=== PATIENT | male | born 2000 | race Two or more races ===

== ENCOUNTER 2021-04-02 11:20 | Emergency (ER) | payer MEDICAID ==
[2021-04-02] MEDS ORDERED: Ondansetron 4 MG/2 ML SDV IVPUSH ONE (11:46)
[2021-04-02] MEDS ORDERED: Ketorolac 30 MG/ML SDV IVPUSH ONE (11:46)
[2021-04-02] MEDS ORDERED: Sodium Chloride 0.9% 1,000 ML IV ONE (11:46)
[2021-04-02] MEDS ORDERED: Morphine 2 MG/ML SYRINGE IVPUSH ONE (11:48)
--- NOTE | 2021-04-02 11:51 | PCM.EKG ---
#1 Interpretation EKG Date: 04/02/21 Time: 11:45 Rhythm: NSR Rate (Beats/Min): 46 [place]: Normal P-Wave: Present QRS: Normal ST-T: Normal QT: Normal Comparison: NA - No Prior EKG EKG Interpretation Comments: Sinus Rhythm with U Waves
[2021-04-02 12:24] LABS: BLOOD UREA NITROGEN,BUN 12 mg/dL (7.0-18.0); CARBON DIOXIDE,CO2 24.8 mmol/L (21.0-32.0); CHLORIDE,CL 105 mmol/L (98-107); GLUCOSE RANDOM 118 mg/dL (74-106); LIPASE 69 U/L (73-393); POTASSIUM,K 3.4 mmol/L (3.5-5.1); SODIUM,NA 141 mmol/L (136-148)
[2021-04-02] MEDS ORDERED: Potassium Chloride 10% 20 MEQ/15 ML Soln 30 ML UD Cup PO ONE (12:32)
[2021-04-02] MEDS ORDERED: Iopamidol 755 MG/ML 500 ML Multipack Bottle IVPUSH STA (13:22)
[2021-04-02] MEDS ORDERED: Calcium Gluconate 10% 1 GM/10 ML SDV IVPUSH ONE (13:32)
--- NOTE | 2021-04-02 13:40 | CT ---
INDICATION: Right lower quadrant pain, stone versus appendicitis. TECHNIQUE: CT of the abdomen and pelvis without and with 100 cc Isovue 370 IV contrast. Coronal and sagittal reconstructions. COMPARISON: None. FINDINGS: There is diffusely heterogeneous enhancement of the liver, greatest in the lateral segment of the left hepatic lobe. The right and middle hepatic veins appear patent, however there is hypoenhancement within the left hepatic vein suggesting thrombus (series 301, image 19). There is also periportal edema within the liver, adam hepatis, and edema surrounding the gallbladder. The edema is favored to represent a reactive liver process rather than gallbladder inflammation. No radiopaque gallstones are seen. No definite biliary dilation. Portal veins are patent. The spleen, pancreas, and adrenal glands are negative. There is a 4 mm obstructing stone at the right ureterovesicular junction (series 301, image 133). Mild upstream right hydroureteronephrosis. No significant delayed nephrogram. Normal enhancement of the left kidney. No left hydronephrosis or ureteral dilation. Diffuse bladder wall thickening. The prostate gland is unremarkable. No bowel dilation. Negative appendix. Small amount of free fluid throughout the abdomen and pelvis. No intraperitoneal free air. No lymphadenopathy. The bones are unremarkable. The lung bases are clear. IMPRESSION: 1. 4 mm obstructing stone at the right UVJ with mild upstream right hydroureteronephrosis. 2. Findings suspicious for left hepatic vein thrombus, with heterogeneous enhancement of left hepatic lobe and periportal/adam hepatis edema. Recommend further evaluation with Doppler ultrasound liver to evaluate the hepatic vasculature. 3. Edema surrounding the gallbladder is favored to be related to the underlying hepatic process, however gallbladder inflammation cannot entirely be excluded. There are no radiopaque gallstones identified. This could also be evaluated with right upper quadrant ultrasound. 4. Findings discussed with Raysa Nguyen at 1:35 p.m. on 04/02/2020. Please note that all CT scans at this facility use dose modulation, iterative reconstruction, and/or weight-based dosing when appropriate to reduce radiation dose to as low as reasonably achievable. Dictated by Priscila Douglas MD @ 04/02/2021 1:38:[address] Priscila Douglas @ Apr 02 2021 1:38PM
--- NOTE | 2021-04-02 14:31 | EDM.PDOC ---
ED HPI GENERAL MEDICAL PROBLEM - General Chief Complaint: Abdominal Pain Stated Complaint: SHARP RT SIDE PAIN Time Seen by Provider: 04/02/21 11:31 Source of Information: Reports: Patient History Limitations: Reports: No Limitations - History of Present Illness INITIAL COMMENTS - FREE TEXT/NARRATIVE: HISTORY AND PHYSICAL: History of present illness: Patient is a 20-year-old male who presents to the ED today with concern of right lower quadrant pain that started this morning. Patient states over the past several days he has noticed that he has had watery nonbloody diarrhea but states that this happens just in the morning and not all day long. Patient states that starting today he has had more significant right lower quadrant pain and states he has never had this happen before. Patient states that he also has some urinary frequency but denies any pain with urination. Patient denies any abdominal surgeries or any health history. Patient denies any other associated symptoms. Patient denies fever, chills, chest pain, shortness of breath, or cough. Denies headache, neck stiff ness, change in vision, syncope, or near syncope. Denies nausea, vomiting, or dysuria. Has not noted any blood in urine or stool. Patient has been eating and drinking appropriately. Review of systems: As per history of present illness and below otherwise all systems reviewed and negative. Past medical history: As per history of present illness and as reviewed below otherwise noncontributory. Surgical history: As per history of present illness and as reviewed below otherwise no ncontributory. Social history: See social history for further information Family history: As per history of present illness and as reviewed below otherwise noncontributory. Physical exam: General: Patient is alert, oriented, and in no acute distress. Patient laying on exam table; holding right lower abdomen and uncomfortable appearing. Bradycardic with heart rate of 45 on initial exam, otherwise vital stable and reviewed by me. HEENT: Atraumatic, normocephalic, pupils equal and reactive bilaterally, negative for conjunctival pallor or scleral icterus, mucous membranes moist, TMs normal bilaterally, throat clear, neck supple, nontender, trachea midline. No drooling or trismus noted. No meningeal signs. No hot potato voice noted. Lungs: Clear to auscultation, breath sounds equal bilaterally, chest nontender. Heart: S1S2, regular rate and rhythm without overt murmur Abdomen: Soft, nondistended, moderate RLQ tenderness without guarding. Negative for masses or hepatosplenomegaly. Negative for costovertebral tenderness. Pelvis: Stable nontender. Genitourinary: Deferred. Rectal: Deferred. Skin: Intact, warm, dry. No lesions or rashes noted. Extremities: Atraumatic, negative for cords or calf pain. Neurovascular unremarkable. Neuro: Awake, alert, oriented. Cranial nerves II through XII unremarkable. Cerebellum unremarkable. Motor and sensory unremarkable throughout. Exam nonfoca l. Notes: Patient is a 20-year-old otherwise healthy male, who presents to the ED today secondary to right lower quadrant abdominal pain that started this morning and diarrhea over the past several days. Upon arrival to the ED, patient is found to be bradycardic with a heart rate of 45 but is asymptomatic with a blood pressure of 140s over 90s. Patient does have right lower quadrant tenderness on exam and does appear to be uncomfortable. Will perform lab work as well as obtain abdominal pelvic CT with concern of possible appendicitis versus ureterolithiasis. Will initiate a fluid bolus and therapeutics to help with discomfort. CBC is unremarkable. CMP shows mild hypokalemia at 3.4, corrected calcium low at 7.8 mg/dL, mildly elevated glucose at 118. Otherwise CMP unremarkable. Lipase is within normal limits. Urinalysis is positive for protein with 10-15 red blood cells. Abdominal pelvic CT scan shows a 4 mm obstructing stone of the right UVJ with mild upstream right hydroureteronephrosis. Findings suspicious for left hepatic vein thrombosis with heterogeneous enhancement of the left hepatic lobe M. Portal/portal hepatitis edema. Recommend further evaluation with Doppler ultrasound of liver to evaluate the hepatic vasculature. Edema surrounding the gallbladder is favored to be related to the underlying hepatic process, however gallbladder inflammation cannot entirely be excluded. There is no radiopaque gallstones identified. Upon reevaluation of patient, he has complete resolution of his pain and feels that the kidney stone has passed. He states that he feels "completely normal "at this time. Will add on at this time RUQ US with doppler flow due to CT finding. There is a delay in radiology interpretation of US due to requiring specialist to interpret the images; noticed via CRTIS. Patient made aware of delays. Right upper quadrant ultrasound with Doppler flow shows question of the left hepatic vein thrombosis on recent CT, the left hepatic vein is patent. Remainder of hepatic vasculature is unremarkable. Periportal edema noted on CT earlier the same day is not as well appreciated on ultrasound. There is a nonspecific finding that can be due to acute hepatitis, cholangitis, congestive heart failure, and aggressive fluid rehydration. Find no evidence also can be seen with acute pyelonephritis or related to kidney stone and hydronephrosis fr om earlier today. Mild gallbladder wall thickening without stones or Zhu sign. Gallbladder wall thickening likely related to periportal edema. Given that patient's LFTs today are within normal limits, patient is now completely asymptomatic of any abdominal pain, RUQ US findings likely related to ureterolithiasis. However, strict return precautions thoroughly discussed with patient. Signs and symptoms that were prompt return to the ED such as but not limited to jaundice, right upper quadrant abdominal pain, extremity swelling, or feeling short of breath. Discussed importance for close follow-up with his primary care provider. Patient was placed on the expedited follow-up list with primary care provider. Although, patient is completely asymptomatic and believed to have passed his kidney stone, discussed following up with the urologist. Voices understanding and is agreeable to plan of care. Denies any further questions or concerns at this time. Diagnostics: EKG, CBC, CMP, UA, lipase, abdominal pelvic CT scan with and without contrast, RUQ US w doppler of liver Therapeutics: NS, Toradol, Morphine Prescription: None Impression: Ureterolithiasis, right Liver edema, nonspecific Plan: 1. You can alternate ibuprofen and Tylenol as directed for pain and discomfort. 2. Follow-up with your primary care provider / urologist as discussed. You have been placed on the expedited follow-up list with primary care. 3. Return to the ED as needed and as discussed. Definitive disposition and diagnosis as appropriate pending reevaluation and review of above. Right Abdominal Pain Score (Numeric/FACES): 10 - Related Data Allergies Allergy/AdvReac Type Severity Reaction Status Date / Time No Known Allergies Allergy Verified 04/02/21 11:54 Home Meds: Home Meds . [No Known Home Meds] 04/02/21 [History] Past Medical History - Past Health History Medical/Surgical History: Denies Medical/Surgical History - Infectious Disease History Infectious Disease History: Reports: None Social & Family History - Tobacco Use Tobacco Use Status *Q: Never Tobacco User - Caffeine Use Caffeine Use: Reports: None - Recreational Drug Use Recreational Drug Type: Reports: Marijuana/Hashish ED ROS GENERAL - Review of Systems Review Of Systems: Comprehensive ROS is negative, except as noted in HPI. ED EXAM, GENERAL - Physical Exam Exam: See Below (see dictation) Course - Vital Signs Last Recorded V/S: Last Vital Signs Temp 97.6 F 04/02/21 11:55 Pulse 59 L 04/02/21 18:24 Resp 17 04/02/21 11:55 BP 110/77 04/02/21 18:24 Pulse Ox 98 04/02/21 18:24 - Orders/Labs/Meds Labs: Laboratory Tests 04/02/21 04/02/21 04/02/21 Range/Units 11:40 11:40 12:21 WBC 4.67 (4.0-11.0) K/uL RBC 4.98 (4.50-5.90) M/uL Hgb 15.0 (13.0-17.0) g/dL Hct 44.1 (38.0-50.0) % MCV 88.6 (80.0-98.0) fL MCH 30.1 (27.0-32.0) pg MCHC 34.0 (31.0-37.0) g/dL RDW Std Deviation 42.3 (28.0-62.0) fl RDW Coeff of Tate 13 (11.0-15.0) % Plt Count 223 (150-400) K/uL MPV 11.00 (7.40-12.00) fL Neut % (Auto) 50.5 (48.0-80.0) % Lymph % (Auto) 36.8 (16.0-40.0) % Gonzales % (Auto) 8.4 (0.0-15.0) % Eos % (Auto) 3.4 (0.0-7.0) % Baso % (Auto) 0.9 (0.0-1.5) % Neut # (Auto) 2.4 (1.4-5.7) K/uL Lymph # (Auto) 1.7 (0.6-2.4) K/uL Gonzales # (Auto) 0.4 (0.0-0.8) K/uL Eos # (Auto) 0.2 (0.0-0.7) K/uL Baso # (Auto) 0.0 (0.0-0.1) K/uL Nucleated RBC % 0.0 /100WBC Nucleated RBCs # 0 K/uL Sodium 141 (136-148) mmol/L Potassium 3.4 L (3.5-5.1) mmol/L Chloride 105 (98-107) mmol/L Carbon Dioxide 24.8 (21.0-32.0) mmol/L BUN 12 (7.0-18.0) mg/dL Creatinine 1.1 (0.8-1.3) mg/dL Est Cr Clr Drug Dosing 82.47 mL/min Estimated GFR (MDRD) > 60.0 ml/min Glucose 118 H (74-106) mg/dL Calcium 8.4 L (8.5-10.1) mg/dL Magnesium 2.0 (1.8-2.4) mg/dL Total Bilirubin 0.5 (0.2-1.0) mg/dL AST 14 L (15-37) IU/L ALT 16 (14-63) IU/L Alkaline Phosphatase 46 (46-116) U/L Total Protein 7.4 (6.4-8.2) g/dL Albumin 4.2 (3.4-5.0) g/dL Globulin 3.2 (2.6-4.0) g/dL Albumin/Globulin Ratio 1.3 (0.9-1.6) Lipase 69 L (73-393) U/L Urine Color YELLOW Urine Appearance SLT CLOUDY Urine pH 6.0 (5.0-8.0) Ur Specific [place] >= 1.030 (1.001-1.035) Urine Protein 30 H (NEGATIVE) mg/dL Urine Glucose (UA) NEGATIVE (NEGATIVE) mg/dL Urine Ketones NEGATIVE (NEGATIVE) mg/dL Urine Occult Blood MODERATE H (NEGATIVE) Urine Nitrite NEGATIVE (NEGATIVE) Urine Bilirubin NEGATIVE (NEGATIVE) Urine Urobilinogen 0.2 (<2.0) EU/dL Ur Leukocyte Esterase NEGATIVE (NEGATIVE) Urine RBC 10-15 (0-2/HPF) Urine WBC 0-2 (0-5/HPF) Ur Epithelial Cells FEW (NONE-FEW) Urine Bacteria FEW (NEGATIVE) Chlamydia/GC Source C.trachomatis RNA (TMA) (Negative) N.gonorrhoeae RNA (TMA) (Negative) 04/02/21 Range/Units 12:21 WBC (4.0-11.0) K/uL RBC (4.50-5.90) M/uL Hgb (13.0-17.0) g/dL Hct (38.0-50.0) % MCV (80.0-98.0) fL MCH (27.0-32.0) pg MCHC (31.0-37.0) g/dL RDW Std Deviation (28.0-62.0) fl RDW Coeff of Tate (11.0-15.0) % Plt Count (150-400) K/uL MPV (7.40-12.00) fL Neut % (Auto) (48.0-80.0) % Lymph % (Auto) (16.0-40.0) % Gonzales % (Auto) (0.0-15.0) % Eos % (Auto) (0.0-7.0) % Baso % (Auto) (0.0-1.5) % Neut # (Auto) (1.4-5.7) K/uL Lymph # (Auto) (0.6-2.4) K/uL Gonzales # (Auto) (0.0-0.8) K/uL Eos # (Auto) (0.0-0.7) K/uL Baso # (Auto) (0.0-0.1) K/uL Nucleated RBC % /100WBC Nucleated RBCs # K/uL Sodium (136-148) mmol/L Potassium (3.5-5.1) mmol/L Chloride (98-107) mmol/L Carbon Dioxide (21.0-32.0) mmol/L BUN (7.0-18.0) mg/dL Creatinine (0.8-1.3) mg/dL Est Cr Clr Drug Dosing mL/min Estimated GFR (MDRD) ml/min Glucose (74-106) mg/dL Calcium (8.5-10.1) mg/dL Magnesium (1.8-2.4) mg/dL Total Bilirubin (0.2-1.0) mg/dL AST (15-37) IU/L ALT (14-63) IU/L Alkaline Phosphatase (46-116) U/L Total Protein (6.4-8.2) g/dL Albumin (3.4-5.0) g/dL Globulin (2.6-4.0) g/dL Albumin/Globulin Ratio (0.9-1.6) Lipase (73-393) U/L Urine Color Urine Appearance Urine pH (5.0-8.0) Ur Specific [place] (1.001-1.035) Urine Protein (NEGATIVE) mg/dL Urine Glucose (UA) (NEGATIVE) mg/dL Urine Ketones (NEGATIVE) mg/dL Urine Occult Blood (NEGATIVE) Urine Nitrite (NEGATIVE) Urine Bilirubin (NEGATIVE) Urine Urobilinogen (<2.0) EU/dL Ur Leukocyte Esterase (NEGATIVE) Urine RBC (0-2/HPF) Urine WBC (0-5/HPF) Ur Epithelial Cells (NONE-FEW) Urine Bacteria (NEGATIVE) Chlamydia/GC Source URINE C.trachomatis RNA (TMA) Negative (Negative) N.gonorrhoeae RNA (TMA) Negative (Negative) Meds: Medications Discontinued Medications Generic Name Dose Route Start Last Admin Trade Name Freq PRN Reason Stop Dose Admin Calcium Gluconate 1 gm 04/02/21 13:32 04/02/21 13:49 Calcium Gluconate 10% 1 Gm/10 Ml Sdv IVPUSH 04/02/21 13:33 1 gm ONETIME ONE Administration Sodium Chloride 1,000 mls @ 999 mls/hr 04/02/21 11:46 04/02/21 12:00 Normal Saline IV 04/02/21 12:46 999 mls/hr BOLUS ONE Administration Iopamidol 100 ml 04/02/21 13:22 04/02/21 13:22 Iopamidol 755 Mg/Ml 500 Ml Multipack Bottle IVPUSH 04/02/21 13:23 100 ml ONETIME STA Administration Ketorolac Tromethamine 30 mg 04/02/21 11:46 04/02/21 11:59 Ketorolac 30 Mg/Ml Sdv IVPUSH 04/02/21 11:47 30 mg ONETIME ONE Administration Morphine Sulfate 2 mg 04/02/21 11:48 04/02/21 12:00 Morphine 2 Mg/Ml Syringe IVPUSH 04/02/21 11:49 2 mg ONETIME ONE Administration Ondansetron HCl 4 mg 04/02/21 11:46 04/02/21 12:00 Ondansetron 4 Mg/2 Ml Sdv IVPUSH 04/02/21 11:47 4 mg ONETIME ONE Administration Potassium Chloride 40 meq 04/02/21 12:32 04/02/21 12:38 Potassium Chloride 10% 20 Meq/15 Ml Soln 30 Ml Ud Cup PO 04/02/21 12:33 40 meq ONETIME ONE Administration Departure - Departure Time of Disposition: 18:02 Disposition: Home, Self-Care 01 Clinical Impression: Ureterolithiasis Edema Qualifiers: Edema type: unspecified Qualified Code(s): R60.9 - Edema, unspecified - Discharge Information Instructions: Edema, [id number] Referrals: PCP,None [Primary Care Provider] - Forms: ED Department Discharge Additional Instructions: The following information is given to patients seen in the emergency department who are being discharged to home. This information is to outline your options for follow-up care. We provide all patients seen in our emergency department with a follow-up referral. The need for follow-up, as well as the timing and circumstances, are variable depending upon the specifics of your emergency department visit. If you don't have a primary care physician on staff, we will provide you with a referral. We always advise you to contact your personal physician following an emergency department visit to inform them of the circumstance of the visit and for follow-up with them and/or the need for any referrals to a consulting specialist. The emergency department will also refer you to a specialist when appropriate. This referral assures that you have the opportunity for follow-up care with a specialist. All of these measure are taken in an effort to provide you with optimal care, which includes your follow-up. Under all circumstances we always encourage you to contact your private physician who remains a resource for coordinating your care. When calling for follow-up care, please make the office aware that this follow-up is from your recent emergency room visit. If for any reason you are refused follow-up, please contact the [facility] Emergency Department at and asked to speak to the emergency department charge nurse. [facility] [address] [place] [id number] [address] [facility] [address] [place] [address] 1. You can alternate ibuprofen and Tylenol as directed for pain and discomfort. 2. Follow-up with your primary care provider / urologist as discussed. You have been placed on the expedited follow-up list with primary care. 3. Return to the ED as needed and as discussed. Sepsis Event Note (ED) - Evaluation Sepsis Screening Result: No Definite Risk
--- NOTE | 2021-04-02 17:37 | US ---
Examination: US right upper quadrant abdomen with duplex evaluation of hepatic vasculature. Indication: Edematous gallbladder and question of left hepatic vein thrombus on recent CT Technique: Multiple grayscale and color Doppler images of the right upper quadrant abdominal structures. Grayscale, color Doppler, and spectral Doppler images of the hepatic vasculature. Comparison: CT earlier same day Findings: Liver: Normal liver echogenicity and contour. No liver lesions. No intra or extrahepatic biliary dilation. Common bile duct measures 3.5 mm. Vasculature: Main portal vein and the right and left portal vein branches are patent with hepatopedal flow. Splenic vein and superior mesenteric vein are patent with hepatopetal flow. Right, middle, and left hepatic veins are patent. Hepatic artery is patent with normal waveform. The sustainability coach incidentally noted elevated velocities in the celiac axis and SMA of 364 cm/S and 350 cm/S while these the systolic velocities can be associated with stenosis, note is made that the aortic velocity is quite high measuring 266 cm/S proximally. These velocities are secondary to the elevated aortic velocity and not related to stenosis. Gallbladder: No stones or sludge. Gallbladder wall thickening. No sonographic Zhu sign. Pancreas: Visualized portions unremarkable. Right kidney: Minimal hydronephrosis, less than seen on CT earlier today. Measures 10.8 cm in length. Normal cortical thickness and echogenicity. No mass or stone within limits of ultrasound exam. Impression: 1. Question of left hepatic vein thrombus on recent CT. By ultrasound, the left hepatic vein is patent. Remainder of hepatic vasculature is unremarkable. 2. Periportal edema noted on CT earlier the same day, is not as well appreciated on ultrasound. This is a nonspecific finding that can be due to acute hepatitis, cholangitis, congestive heart failure, and aggressive fluid hydration. Findings can also be seen with acute pyelonephritis. If the patient has no other evidence of liver disease, this may be related to the kidney stone and hydronephrosis noted earlier today. 3. Mild gallbladder wall thickening without stones or sonographic Zhu sign. Gallbladder wall thickening likely related to periportal edema. Dictated by Shamar Jones MD @ 04/02/2021 5:36:[address] Shamar Jones @ Apr 02 2021 5:36PM
[2021-04-03 11:06] LABS: C.TRACHOMATIS BY TMA Negative (Negative); N.GONORRHOEAE BY TMA Negative (Negative)
--- NOTE | 2021-04-06 11:52 | US ---
EXAM DATE: 04/02/21 PATIENT'S AGE: 20 Patient: GUILLERMO BELL Facility: [facility] Site . Site : [id number] Study: [id number]-2/13/2021 3:58:08 PM Ordering Physician: Wendy Tabares Final Report: Examination: US right upper quadrant abdomen with duplex evaluation of hepatic vasculature. Indication: Edematous gallbladder and question of left hepatic vein thrombus on recent CT Technique: Multiple grayscale and color Doppler images of the right upper quadrant abdominal structures. Grayscale, color Doppler, and spectral Doppler images of the hepatic vasculature. Comparison: CT earlier same day Findings: Liver: Normal liver echogenicity and contour. No liver lesions. No intra or extrahepatic biliary dilation. Common bile duct measures 3.5 mm. Vasculature: Main portal vein and the right and left portal vein branches are patent with hepatopedal flow. Splenic vein and superior mesenteric vein are patent with hepatopetal flow. Right, middle, and left hepatic veins are patent. Hepatic artery is patent with normal waveform. The fiber design engineer incidentally noted elevated velocities in the celiac axis and SMA of 364 cm/S and 350 cm/S while these the systolic velocities can be associated with stenosis, note is made that the aortic velocity is quite high measuring 266 cm/S proximally. These velocities are secondary to the elevated aortic velocity and not related to stenosis. Gallbladder: No stones or sludge. Gallbladder wall thickening. No sonographic Zhu sign. Pancreas: Visualized portions unremarkable. Right kidney: Minimal hydronephrosis, less than seen on CT earlier today. Measures 10.8 cm in length. Normal cortical thickness and echogenicity. No mass or stone within limits of ultrasound exam. Impression: 1. Question of left hepatic vein thrombus on recent CT. By ultrasound, the left hepatic vein is patent. Remainder of hepatic vasculature is unremarkable. 2. Periportal edema noted on CT earlier the same day, is not as well appreciated on ultrasound. This is a nonspecific finding that can be due to acute hepatitis, cholangitis, congestive heart failure, and aggressive fluid hydration. Findings can also be seen with acute pyelonephritis. If the patient has no other evidence of liver disease, this may be related to the kidney stone and hydronephrosis noted earlier today. 3. Mild gallbladder wall thickening without stones or sonographic Zhu sign. Gallbladder wall thickening likely related to periportal edema. Dictated by Shamar Jones MD @ 04/02/2021 5:36:52 PM Signed by: Shamar Jones MD @04/02/2021 5:36:52 PM (Electronic Signature) Report Signed by Proxy. MTDD
== END 2021-04-02 18:29 | disposition home or self-care (01) ==
LOC: EDBD 11:20 → MW.ED 11:20
DX: N13.2 Hydronephrosis with renal and ureteral calculous obstruction (principal); R60.0 Localized edema
CPT/HCPCS: 36415; 74178; 76705; 80053; 81001; 83690; 83735; 85025; 87491; 87591; 93005; 93975; 96374; 96375; 99284; A9270; J0610; J1885; J2270; J2405; J7030; Q9967

== ENCOUNTER 2021-07-15 20:30 | Emergency (ER) | payer MEDICAID ==
--- NOTE | 2021-07-15 22:41 | EDM.PDOC ---
ED HPI GENERAL MEDICAL PROBLEM - General Chief Complaint: Behavioral/Psych Stated Complaint: MENTAL HEALTH Time Seen by Provider: 07/15/21 22:03 - History of Present Illness INITIAL COMMENTS - FREE TEXT/NARRATIVE: History of present illness: [] The patient has he has trouble keeping and soft together. He feels like he might have some danger at work. The father says there is no danger at work. The father says the patient for about 8 months to start to be more confused and unreliable. He had been asked perfect student with a full scholarship who graduated from college. 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 The father says he is wasted down to nothing with his weight loss until he is a terribly thin person who used to be athletic and well-built. The patient did not show up to date to a court date for his brother where he was going to testify. The patient apologized and said he was confused. The patient says he is confused but he does not know if he might become suicidal and might hurt somebody but he is sure he is not can hurt somebody tonight and he says he would be willing to be medically cleared and go to [facility] tomorrow. Father is okay with that. There was 1 episode where the father said he told him that people thought he was God. This appears to be somewhat of a delusion and very variant individual raising the issue of possible acute schizophrenia. Review of systems: As per history of present illness and below otherwise all systems reviewed and negative. Past medical history: As per history of present illness and as reviewed below otherwise noncontributory. Surgical history: As per history of present illness and as reviewed below otherwise noncontributory. Social history: No reported history of drug or alcohol abuse. Family history: As per history of present illness and as reviewed below otherwise noncontributory. Physical exam: Constitutional - well developed, well-nourished and in no acute distress HEENT - normocephalic, no evidence of trauma - external nose and mouth normal - no mass in neck and no JVD - mucosae moist EYES - full EOM, PERRL, no icterus - no evidence of inflammation, injection, or drainage Respiratory - no respiratory distress, equal bilateral expansion, lungs clear to auscultation and no abnormal lung sounds Cardiovascular - Regular Rhythm with S1 and S2 appreciated and no murmur, gallop or rub. GI - abdomen soft without distension or organomegaly - normal bowel sounds - no guard or rebound Musculoskeletal no gross deformity of long bones or joints - no tenderness, s welling or edema Neurologic - Alert and oriented times four - CN II-XII grossly intact - motor sensory and coordination symmetrically normal Psychiatric -calm with flat affect. Appropriate mood. Thought is tangential. He has trouble expressing himself and completing a sentence because he says he is confused that he has trouble describing exactly how he is confused. He denies any suicidal intent or plan but says he is not sure if he might consider it in the future. Hematologic - No petechiae or purpura - mucosa appropriate color and sclera not pale - normal nail bed color and refill Integument - no rash or evidence of trauma - normal turgor Diagnostics: [] Therapeutics: [] Impression: [] Plan: [] Definitive disposition and diagnosis as appropriate pending reevaluation and review of above. - Related Data Allergies Allergy/AdvReac Type Severity Reaction Status Date / Time No Known Allergies Allergy Verified 04/02/21 11:54 Home Meds: Home Meds . [No Known Home Meds] 04/02/21 [History] Past Medical History - Past Health History Medical/Surgical History: Denies Medical/Surgical History - Infectious Disease History Infectious Disease History: Reports: None Social & Family History - Tobacco Use Tobacco Use Status *Q: Never Tobacco User Second Hand Smoke Exposure: No - Caffeine Use Caffeine Use: Reports: Energy Drinks, Soda - Recreational Drug Use Recreational Drug Use: Yes Recreational Drug Type: Reports: Marijuana/Hashish Recreational Drug Use Frequency: Socially Recreational Drug Last Use: 06/2021 ED ROS GENERAL - Review of Systems Review Of Systems: Comprehensive ROS is negative, except as noted in HPI. ED EXAM, GENERAL - Physical Exam Exam: See Below Free Text/Narrative:: My physical exam is in the HPI Course - Vital Signs Last Recorded V/S: Last Vital Signs Temp 37.0 C 07/15/21 22:12 Pulse 86 07/15/21 22:12 Resp 20 07/15/21 22:12 BP 107/60 07/15/21 22:12 Pulse Ox 99 07/15/21 22:12 - Orders/Labs/Meds Labs: Laboratory Tests 07/15/21 07/15/21 07/15/21 Range/Units 22:40 22:40 22:45 WBC 4.96 (4.0-11.0) K/uL RBC 4.46 L (4.50-5.90) M/uL Hgb 13.3 (13.0-17.0) g/dL Hct 38.2 (38.0-50.0) % MCV 85.7 (80.0-98.0) fL MCH 29.8 (27.0-32.0) pg MCHC 34.8 (31.0-37.0) g/dL RDW Std Deviation 39.9 (28.0-62.0) fl RDW Coeff of Tate 13 (11.0-15.0) % Plt Count 219 (150-400) K/uL MPV 10.70 (7.40-12.00) fL Neut % (Auto) 62.7 (48.0-80.0) % Lymph % (Auto) 27.2 (16.0-40.0) % [place] % (Auto) 8.7 (0.0-15.0) % Eos % (Auto) 1.0 (0.0-7.0) % Baso % (Auto) 0.4 (0.0-1.5) % Neut # (Auto) 3.1 (1.4-5.7) K/uL Lymph # (Auto) 1.4 (0.6-2.4) K/uL [place] # (Auto) 0.4 (0.0-0.8) K/uL Eos # (Auto) 0.1 (0.0-0.7) K/uL Baso # (Auto) 0.0 (0.0-0.1) K/uL Nucleated RBC % 0.0 /100WBC Nucleated RBCs # 0 K/uL Sodium 141 (136-148) mmol/L Potassium 4.0 (3.5-5.1) mmol/L Chloride 105 (98-107) mmol/L Carbon Dioxide 29.6 (21.0-32.0) mmol/L BUN 17 (7.0-18.0) mg/dL Creatinine 1.0 (0.8-1.3) mg/dL Est Cr Clr Drug Dosing 86.28 mL/min Estimated GFR (MDRD) > 60.0 ml/min Glucose 123 H (74-106) mg/dL Calcium 8.2 L (8.5-10.1) mg/dL Total Bilirubin 0.4 (0.2-1.0) mg/dL AST 21 (15-37) IU/L ALT 27 (14-63) IU/L Alkaline Phosphatase 52 (46-116) U/L Total Protein 7.0 (6.4-8.2) g/dL Albumin 4.1 (3.4-5.0) g/dL Globulin 2.9 (2.6-4.0) g/dL Albumin/Globulin Ratio 1.4 (0.9-1.6) TSH, Ultra Sensitive 0.52 (0.36-3.74) uIU/mL Urine Opiates Screen NEGATIVE (NEGATIVE) Ur Oxycodone Screen NEGATIVE (NEGATIVE) Urine Methadone Screen NEGATIVE (NEGATIVE) Ur Barbiturates Screen NEGATIVE (NEGATIVE) Ur Phencyclidine Scrn NEGATIVE (NEGATIVE) Ur Amphetamine Screen NEGATIVE (NEGATIVE) U Methamphetamines Scrn NEGATIVE (NEGATIVE) U Benzodiazepines Scrn NEGATIVE (NEGATIVE) U Cocaine Metab Screen NEGATIVE (NEGATIVE) U Marijuana (THC) Screen NEGATIVE (NEGATIVE) Ethyl Alcohol < 3.0 mg/dL Departure - Departure Time of Disposition: 23:48 Disposition: Home, Self-Care 01 Condition: Good Clinical Impression: Mood disorder, Thought disorder - Discharge Information Referrals: PCP,None [Primary Care Provider] - Forms: ED Department Discharge Additional Instructions: Call or go in tomorrow. Walk-ins are excepted at 9 AM. Stay with your family tonight. If you have any thoughts of hurting yourself or anyone else have someone bring into the emergency department immediately. [facility] Address: [address] [place] [id number] Hours: walk in 9 AM M-F The following information is given to patients seen in the emergency department who are being discharged to home. This information is to outline your options for follow-up care. We provide all patients seen in our emergency department with a follow-up referral. The need for follow-up, as well as the timing and circumstances, are variable depending upon the specifics of your emergency department visit. If you don't have a primary care physician on staff, we will provide you with a referral. We always advise you to contact your personal physician following an emergency department visit to inform them of the circumstance of the visit and for follow-up with them and/or the need for any referrals to a consulting specialist. The emergency department will also refer you to a specialist when appropriate. This referral assures that you have the opportunity for follow-up care with a specialist. All of these measure are taken in an effort to provide you with optimal care, which includes your follow-up. Under all circumstances we always encourage you to contact your private physician who remains a resource for coordinating your care. When calling for follow-up care, please make the office aware that this follow-up is from your recent emergency room visit. If for any reason you are refused follow-up, please contact the [facility] Emergency Department at and asked to speak to the emergency department charge nurse. Sepsis Event Note (ED) - Evaluation Sepsis Screening Result: No Definite Risk - Focused Exam Vital Signs: Vital Signs Temp Pulse Resp BP Pulse Ox 07/15/21 22:12 37.0 C 86 20 107/60 99
[2021-07-15 23:43] LABS: BLOOD UREA NITROGEN,BUN 17 mg/dL (7.0-18.0); CARBON DIOXIDE,CO2 29.6 mmol/L (21.0-32.0); CHLORIDE,CL 105 mmol/L (98-107); GLUCOSE RANDOM 123 mg/dL (74-106); SODIUM,NA 141 mmol/L (136-148)
== END 2021-07-16 00:15 | disposition home or self-care (01) ==
LOC: MW.ED 20:30
DX: F39 Unspecified mood [affective] disorder (principal); F22 Delusional disorders
CPT/HCPCS: 36415; 80053; 80305-QW; 80307; 84443; 85025; 99284

== ENCOUNTER 2025-06-07 09:00 | Emergency (ER) | payer MEDICAID ==
[2025-06-07] MEDS ORDERED: Sodium Chloride 0.9% 2.5 ML Syringe FLUSH PRN (09:19)
[2025-06-07] MEDS ORDERED: Sodium Chloride 0.9% 10 ML Syringe FLUSH PRN (09:19)
[2025-06-07] MEDS: methylPREDNISolone Sodium Succinate 125 MG/2 ML SDV IVPUSH ONE (09:24)
[2025-06-07 09:33] LABS: BASOPHILS ABSOLUTE AUTO 0.06 K/uL (0.00-0.20); BASOPHILS PERCENT AUTO 0.8 % (0.0-1.0); EOSINOPHILS ABSOLUTE AUTO 0.28 K/uL (0.00-0.45); EOSINOPHILS PERCENT AUTO 3.8 % (0.0-6.0); IMMATURE GRAN ABSOLUTE AUTO 0.02 K/uL (0.00-0.05); IMMATURE GRAN PERCENT AUTO 0.3 % (0.0-0.4); LYMPHOCYTES ABSOLUTE AUTO 2.09 K/uL (1.00-4.80); LYMPHOCYTES PERCENT AUTO 28.1 % (24.0-44.0); MEAN PLATELET VOLUME 10.0 fL (9.4-12.4); MONOCYTES ABSOLUTE AUTO 0.61 K/uL (0.00-0.80); MONOCYTES PERCENT AUTO 8.2 % (0.0-8.0); NEUTROPHILS ABSOLUTE AUTO 4.38 K/uL (1.80-7.70); NEUTROPHILS PERCENT AUTO 58.8 % (41.0-71.0); NRBC ABSOLUTE 0.00 K/uL (0.00-0.02); NRBC PERCENT 0.0 /100WBC (0.0-0.2); PLATELET COUNT,PLT 226 K/uL (150-400); RED BLOOD CELL COUNT 4.98 M/uL (4.52-5.90); WHITE BLOOD CELL COUNT,WBC 7.44 K/uL (3.9-11.3)
[2025-06-07] MEDS: Ketorolac 30 MG/ML SDV IVPUSH ONE (09:40)
[2025-06-07] MEDS: Dexamethasone 4 MG/ML SDV IVPUSH ONE ×2 (09:41→14:15)
[2025-06-07 10:02] LABS: A/G RATIO 1.4 (0.9-1.6); ALANINE AMINOTRANSFERASE,ALT 26 IU/L (14-63); ASPARTATE AMNIOTRANSFERASE,AST 14 IU/L (15-37); BILIRUBIN TOTAL 0.2 mg/dL (0.2-1.0); BLOOD UREA NITROGEN,BUN 17 mg/dL (7.0-18.0); CARBON DIOXIDE,CO2 24.0 mmol/L (21.0-32.0); CHLORIDE,CL 105 mmol/L (98-107); CREATININE 1.1 mg/dL (0.8-1.3); GLUCOSE RANDOM 99 mg/dL (74-106); POTASSIUM,K 3.7 mmol/L (3.5-5.1); PROTEIN TOTAL,TP 7.0 g/dL (6.4-8.2); SODIUM,NA 139 mmol/L (136-148)
[2025-06-07 10:04] LABS: ESTIMATED GFR 96 mL/min (>60)
[2025-06-07] MEDS ORDERED: Naloxone 0.4 MG/ML SDV IVPUSH PRN (13:34)
[2025-06-07] MEDS: fentaNYL 50 MCG/ML SDV IVPUSH ONE (14:15)
== END 2025-06-07 17:52 | disposition home or self-care (01) ==
LOC: MW.ED 09:00
DX: G54.4 Lumbosacral root disorders, not elsewhere classified (principal); Z79.899 Other long term (current) drug therapy
CPT/HCPCS: 36415; 72148; 72170; 80053; 83735; 85025; 96374; 96375; 96376; 99284; J1100; J1885; J3010; J3360; J7030; 99283